=== PATIENT | male | born 1975 | race Two or more races ===

== ENCOUNTER 2024-11-11 09:36 | Emergency (ER) | payer OTHER ==
[~2024-11-11] VITALS: Ht 167.6 cm; Wt 74.2 kg
[2024-11-11 11:24] LABS: Hematocrit 46.7 % (41.0-53.0); Hemoglobin 16.0 g/dL (13.5-17.5); Mean Corpuscular Hemoglobin 29.3 pg (28.0-32.0); Mean Corpuscular Volume 85.7 fL (80.0-100.0); Nucleated Red Blood Cells % 0.1 %
[2024-11-11 11:38] LABS: Anion Gap 8 (5-15); Carbon Dioxide 30 mmol/L (20-31); Chloride 102 mmol/L (98-107); Potassium 4.1 mmol/L (3.5-5.1); Sodium 140 mmol/L (136-145)
[2024-11-11 11:42] LABS: Calcium 10.9 mg/dL (8.7-10.4)
[2024-11-11 11:44] LABS: BUN/Creatinine Ratio 13.6 (10.0-20.0); Blood Urea Nitrogen 12 mg/dL (9-23)
[2024-11-11 11:46] VITALS: BP 159/87; PULSE 72; RESP 18; TEMP 98.3; O2SAT 99
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
[2024-11-11 11:47] LABS: Glucose 115 mg/dL (74-106)
== END 2024-11-11 12:07 | disposition home or self-care (01) ==
LOC: ER 09:36
DX: R42 Dizziness and giddiness (principal); Z77.098 Contact with and (suspected) exposure to other hazardous, chiefly nonmedicinal, chemicals
CPT/HCPCS: 36415; 80048; 85025